=== PATIENT | male | born 1980 | race Caucasian/White ===

== ENCOUNTER 2017-12-26 14:11 | Emergency (ER) | payer BC ==
--- NOTE | 2017-12-26 14:55 | EDPHY ---
H & P Stated Complaint: dizzy, HTN Time Seen by Provider: 12/26/17 14:54 HPI/ROS: CHIEF COMPLAINT: Transient vertigo, hypertension HISTORY OF PRESENT ILLNESS: The patient presents to the ED after he developed vertigo earlier today. The patient described fairly typical symptoms of benign positional vertigo. He was anxious as he has never had this before in the past. He was taken to urgent care where he was noted to be hypertensive. He was referred to the ED for further evaluation. The patient tells me that his vertigo has resolved. He has had a history of borderline hypertension in the past. He denies any complaints of an acute headache, neck pain, chest pain, shortness of breath, history of fall or other acute complaints. REVIEW OF SYSTEMS: A comprehensive 10 point review of systems is otherwise negative aside from elements mentioned in the history of present illness. Source: Patient - Personal History Current Tetanus/Diphtheria Vaccine: Yes Current Tetanus Diphtheria and Acellular Pertussis (TDAP): Yes - Medical/Surgical History Hx Asthma: No Hx Chronic Respiratory Disease: No Hx Diabetes: No Hx Cardiac Disease: No Hx Renal Disease: No Hx Cirrhosis: No Hx Alcoholism: No Hx HIV/AIDS: No Hx Splenectomy or Spleen Trauma: No Other PMH: denies - Social History Smoking Status: Never smoked - Physical Exam Exam: General Appearance: Alert, no distress Eyes: Pupils equal and round no pallor or injection ENT, Mouth: Mucous membranes moist Respiratory: There are no retractions, lungs are clear to auscultation Cardiovascular: Regular rate and rhythm Gastrointestinal: Abdomen is soft and nontender, no masses, bowel sounds normal Neurological: A&O, normal motor function, normal sensory exam, normal cranial nerves Skin: Warm and dry, no rashes Musculoskeletal: Neck is supple nontender Extremities: symmetrical, full range of motion Constitutional: Initial Vital Signs Temperature (C) 36.4 C 12/26/17 14:16 Heart Rate 80 12/26/17 14:16 Respiratory Rate 16 12/26/17 14:16 Blood Pressure 184/111 H 12/26/17 14:16 O2 Sat (%) 95 12/26/17 14:16 O2 Delivery Mode Room Air Allergies/Adverse Reactions: amoxicillin Allergy (Verified 12/26/17 14:15) Home Medications: Medication Instructions Recorded Helen 12/26/17 Medical Decision Making ED Course/Re-evaluation: The patient presents to the ED after an episode of benign positional vertigo which precipitated anxiety and ultimately episodic hypertension. The patient was noted to be neurologically intact upon arrival. He was noted to have a slightly elevated blood pressure upon arrival. This corrected without intervention in the ED. At 4:15 p.m., blood pressure is 142/87. The patient is neurologically intact. He does have a history of borderline hypertension. The patient will be referred to our on-call primary care provider. He is discharged home with customary aftercare instructions and return precautions. Differential Diagnosis: Differential diagnosis considered includes hypertensive emergency, hypertensive urgency, labyrinthitis, benign positional vertigo, arrhythmia - Data Points Laboratory Results: Laboratory Results 12/26/17 15:04 12/26/17 15:04 12/26/17 12/26/17 15: 15:04 WBC 8.13 10^3/uL 10^3/uL (3.80-9.50) RBC 5.10 10^6/uL 10^6/uL (4.40-6.38) Hgb 15.7 g/dL g/dL (13.7-17.5) Hct 45.4 % % (40.0-51.0) MCV 89.0 fL fL (81.5-99.8) MCH 30.8 pg pg (27.9-34.1) MCHC 34.6 g/dL g/dL (32.4-36.7) RDW 12.7 % % (11.5-15.2) Plt Count 307 10^3/uL 10^3/uL (150-400) MPV 7.9 fL L fL (8.7-11.7) Neut % (Auto) 68.2 % % (39.3-74.2) Lymph % (Auto) 19.4 % % (15.0-45.0) [place] % (Auto) 9.5 % % (4.5-13.0) Eos % (Auto) 2.0 % % (0.6-7.6) Baso % (Auto) 0.5 % % (0.3-1.7) Nucleat RBC Rel Count 0.0 % % (0.0-0.2) Absolute Neuts (auto) 5.55 10^3/uL 10^3/uL (1.70-6.50) Absolute Lymphs (auto) 1.58 10^3/uL 10^3/uL (1.00-3.00) Absolute Monos (auto) 0.77 10^3/uL 10^3/uL (0.30-0.80) Absolute Eos (auto) 0.16 10^3/uL 10^3/uL (0.03-0.40) Absolute Basos (auto) 0.04 10^3/uL 10^3/uL (0.02-0.10) Absolute Nucleated RBC 0.00 10^3/uL 10^3/uL (0-0.01) Immature Gran % 0.4 % % (0.0-1.1) Immature Gran # 0.03 10^3/uL 10^3/uL (0.00-0.10) Sodium 138 mEq/L mEq/L (135-145) Potassium 4.4 mEq/L mEq/L (3.3-5.0) Chloride 101 mEq/L mEq/L (97-110) Carbon Dioxide 23 mEq/l mEq/l (22-31) Anion Gap 14 mEq/L mEq/L (6-14) BUN 20 mg/dL mg/dL (7-23) Creatinine 1.0 mg/dL mg/dL (0.7-1.3) Estimated GFR > 60 Glucose 88 mg/dL mg/dL (70-100) Calcium 10.2 mg/dL mg/dL (8.5-10.4) Departure - Departure Disposition: Home, Routine, Self-Care Clinical Impression: Vertigo, Hypertension Condition: Good Instructions: Benign Paroxysmal Positional Vertigo (ED) Additional Instructions: 1. I do recommend establishing care with a primary care provider. You have been referred to Dr. Arguello our on-call primary care provider who would be happy to see you in follow-up. 2. Please return to the ED for severe headache, uncontrolled dizziness, numbness , weakness, difficulty with speech or other concerns. Referrals: Annie Arguello MD [Medical Doctor] - As per Instructions
--- NOTE | 2017-12-26 15:09 | CPEKG ---
Test Reason : OPEN Blood Pressure : / mmHG Vent. Rate : 072 BPM Atrial Rate : 072 BPM P-R Int : 163 ms QRS Dur : 098 ms QT Int : 402 ms P-R-T Axes : 019 052 061 degrees QTc Int : 440 ms Sinus rhythm Confirmed by Madi Patel ([id number]) on 12/26/2017 3:09:25 PM Referred By: Confirmed By:Madi Patel
[2017-12-26 15:11] LABS: PLATELET COUNT 307 10^3/uL (150-400)
[2017-12-26 16:25] VITALS: BP 142/97
== END 2017-12-26 16:54 | disposition home or self-care (01) ==
DX: H81.10 Benign paroxysmal vertigo, unspecified ear (principal); I10 Essential (primary) hypertension